=== PATIENT | male | born 1955 | race Caucasian/White ===

== ENCOUNTER 2023-10-13 10:50 | Outpatient (OUT) | payer MEDICARE, MEDICAID, SELFPAY ==
--- NOTE | 2023-10-13 | CONS_ITS ---
CONSULTATION DATE: 10/13/2023 TO: BROOK Dalton CHIEF COMPLAINT: Includes right shoulder pain as well as neck pain. HISTORY OF PRESENT ILLNESS: Review of systems, past medical/surgical history were obtained and documented on the health questionnaire and is available upon request. He is a 68-year-old male. He reports having pain in the above mentioned areas for at least the last six months. Over the last three months, he reports increasing the increase in pain has altered his quality of life, level of functioning and sleep pattern. He rates the pain overall as being 6-7/10 in severity and sometimes it does get to 10/10. He describes it as a sharp, aching pain, increased with activities such as standing, walking and performing transitioning maneuvers. He reports lifting maneuvers, pushing/pulling maneuvers are also quite painful. He has been using ibuprofen 800 mg three times a day for at least the last three months, which was only marginally helpful. He has been also using Tylenol almost around the clock as well, over the last 1-2 months. He has been trialed with oral steroid therapy, which offered him moderate reduction in pain as well. Despite this, as well as his activity modification, he reports his pain is altering his quality of life, level of functioning and sleep pattern. His MILI on today?s visit was 42. EXAMINATION: Notable for patient having hypoesthesia along the left C6 dermatome, 3/5 strength of the left biceps, depressed left biceps reflex, no appreciable Spurling?s sign, no appreciable transverse myelopathy noted. He also had severe pain with right shoulder extension, internal rotation, abduction. He has an equivocally positive right sided empty can sign and quite severe pain with right shoulder abduction. IMPRESSION: Our impression is patient with pain secondary to multiple etiology: Left C6 radiculopathy, but at this time I do not believe his left C6 radiculopathy is consistent with what is causing the majority of his pain, which is on the right side. I believe most of his pain on the right side is related to rotator cuff disorder with impingement type syndrome, as he has reduced range of motion with right shoulder extension, abduction as well as flexion, and patient had pain with empty can sign, as well as right shoulder abduction at approximately 45 degrees. Our impression is patient does have pain secondary to: 1. Right rotator cuff strain/impingement syndrome. 2. Left C6 radiculopathy with myofascial dysfunction of the cervical paravertebral muscles. RECOMMENDATIONS: I have recommended he consider adding physical therapy to his current routine, progressive right shoulder issues. We will proceed with a pending x-ray and MRI of the right shoulder, and proceed with a right shoulder injection under fluoroscopic guidance. In the meantime, I have asked him to maintain his current dose of Zanaflex 4 mg at h.s. As part of providing excellent, safe, comprehensive care, the following was completed at our patient's visit: 1. A medication reconciliation and review to ensure accurate knowledge of current/active medications, including asking our patients to inform us about any [id number] medications or herbal remedies/nutritional supplements/alternative remedies. 2. A review to specifically ensure our patients have had annual screening for: elevated body mass index (BMI, see intake chart for exact total), tobacco use, screening for depression, and screening for unhealthy alcohol use. When screening is concerning, patients are provided with education and the specific recommendation to discuss the concerning health issue and treatment options with their primary care provider. AVANI
== END 2023-10-13 10:51 | disposition home or self-care (01) ==
PROVIDERS: Visit Provider Anesthesiology
DX: M25.511 Pain in right shoulder (principal); M54.2 Cervicalgia; M75.101 Unspecified rotator cuff tear or rupture of right shoulder, not specified as traumatic; M54.12 Radiculopathy, cervical region
CPT/HCPCS: G0463

== ENCOUNTER 2023-10-21 09:26 | Outpatient (OUT) | payer MEDICARE, MEDICAID, SELFPAY ==
--- NOTE | 2023-10-21 09:30 | MR_ITS ---
[address] [address] Patient Name: NORMAN VILLAR MRN: [id number] date: 1955 Sex: M Assigned Patient Location: MRI Current Patient Location: MRI Accession/Order Number: [id number] Exam Date: 10/21/2023 09:45 Report Date: 10/21/2023 17:07 At the request of: ANTONIO RICHARDS Procedure: MR shoulder RT wo con EXAM: MR shoulder RT wo con HISTORY: Right Shoulder Rotator Cuff Tear, Right Shoulder Pain COMPARISON: 10/21/2023 radiograph TECHNIQUE: MRI images obtained with multiple sequences. MRI of the right shoulder without contrast. Sequences obtained by standard department protocol. FINDINGS: Moderate degeneration at the acromioclavicular joint. Subacromial subdeltoid bursal fluid, consistent with bursitis. High-grade partial-thickness tearing of the distal supraspinatus/infraspinatus tendon. The tear measures approximately 1.9 cm in width. Posterior infraspinatus fibers are intact. Subscapularis tendon is intact. Teres minor is intact. Mild atrophy of the muscle bulk of the rotator cuff. No acute fractures. No full-thickness chondral loss at the glenohumeral joint. No labral detachment. Biceps tendon is intact and within the intertubercular groove. No right axillary adenopathy. MR/MR shoulder RT wo con IMPRESSION: 1. High-grade partial-thickness tearing of the distal supraspinatus/infraspinatus tendon. The tear measuring approximately 1.9 cm in width. 2. Subacromial subdeltoid bursal fluid, consistent with bursitis. 3. Biceps tendon is intact and within the intertubercular groove. 4. No acute fractures. Electronically authenticated by: ARRON SANTOS Date: 10/21/2023 17:07
--- NOTE | 2023-10-21 09:31 | XR_ITS ---
[address] [address] Patient Name: NORMAN VILLAR MRN: [id number] date: 1955 Sex: M Assigned Patient Location: MRI Current Patient Location: MRI Accession/Order Number: [id number] Exam Date: 10/21/2023 09:40 Report Date: 10/21/2023 10:57 At the request of: ANTONIO RICHARDS Procedure: XR shoulder RT min 2V PROCEDURE: XR shoulder RT min 2V HISTORY: Right Shoulder Rotator Cuff Tear, Right Shoulder Pain ; chronic right shoulder pain COMPARISON: None. FINDINGS: BONES:Narrowing of the acromioclavicular joint and small undersurface osteophyte. Unremarkable glenohumeral joint. SOFT TISSUES:No visible soft tissue swelling. EFFUSION:None visible. OTHER: Negative. XR/XR shoulder RT min 2V IMPRESSION: 1. Mild degenerative changes of acromioclavicular joint which may predispose to rotator cuff injury. 2. No acute bone abnormality. Electronically authenticated by: JOSE RAMON BURT Date: 10/21/2023 10:57
--- OUTSIDE RECORDS SUMMARY | 2023-10-21 09:47 | XMS_ITS | CCD ---
Author Organization [facility] Care Team Providers Care Kalsominer Name Role Phone REYNOSOHEATH Attending Unavailable MARIAELENA, PHILLIP F Referring Unavailable MARIAELENA, PHILLIP F Primary Care Unavailable Jackie Pimentel MD Unavailable [phone] Jackie Pimentel MD Primary Care Provider SWETHA HANSEN Attending Unavailable MARIAELENA, PHILLIP F Referring Unavailable MARIAELENA, PHILLIP F Primary Care Unavailable SWETHA HANSEN Referring Unavailable MARIAELENA, PHILLIP F Primary Care Unavailable MARIAELENA, PHILLIP F Referring Unavailable MARIAELENA, PHILLIP F Primary Care Unavailable MARIAELENA, PHILLIP F Referring Unavailable MARIAELENA, PHILLIP F Primary Care Unavailable AARTI AGUIRRE Referring Unavailable MARIAELENA, PHILLIP F Primary Care Unavailable MARIAELENA, PHILLIP F Referring Unavailable MARIAELENA, PHILLIP F Primary Care Unavailable IRMA ELENA Attending Unavailable IRMA ELENA Referring Unavailable MARIAELENA, PHILLIP F Primary Care Unavailable ISELA JACOBS Attending Unavailab SKINNY Martin Attending Unavailable JACOBSISELA SAAVEDRA Referring Unavailab le JACOBS, ISELA Wolfe Attending Unavailab le JACOBS, ISELA Wolfe Attending Unavailab le JACOBS, ISELA Wolfe Referring Unavailab le JACOBS, ISELA Wolfe Referring Unavailab le JACOBSISELA Attending Unavailab IRMA Munson Attending Unavailable SKINNY PABLO Attending Unavailable IRMA ELENA Attending Unavailable IRMA ELENA Referring Unavailable ALEX MALCOLM Attending Unavailable IRMA ELENA Referring Unavailable RIVKA LORA Attending Unavailable IRMA ELENA Referring Unavailable RIVKA LORA Attending Unavailable IRMA ELENA Referring Unavailable DELVIN GREEN Attending Unavailable IRMA ELENA Referring Unavailable IRMA ELNEA Attending Unavailable DELVIN GREEN Attending Unavailable IRMA ELENA Referring Unavailable ALEX MALCOLM Attending Unavailable IRMA ELENA Referring Unavailable ALEX MALCOLM Attending Unavailable IRMA ELENA Referring Unavailable IRMA ELENA Referring Unavailable RIVKA LORA Attending Unavailable ALEX MALCOLM Attending Unavailable IRMA WATSON Referring Unavailable ISELA JACOBS Attending Unavailab SKINNY Martin Attending Unavailable ISELA JACOBS Attending Unavail jessica Allergies Allergy Classification Reported Allergen(s) Allergy Type Date of Onset Reaction(s) Facility (5 sources) Allopurinol; Translations: [ALLOPURINOL] Drug Allergy 10-12-2019 [facility] Medications Current Medications Medication Drug Class(es) Dates Sig (Normalized) Sig (Original) 8 hr acetaminophen 650 mg extended release oral tablet (2 sources) take 1 tablet by mouth every eight hours as needed acetaminophen (Tylenol 8 Hour) 650 MG ER tablet Take 650 mg by mouth every 8 (eight) hours if needed. 0 Active ACIDOPHILUS LACTOBACILLUS PO (2 sources) ACIDOPHILUS LACTOBACILLUS PO Take by mouth 0 Active albuterol 0.83 mg/ml inhalation solution (2 sources) beta2-Adrenergic Agonist take 2.5 mg by inhalation every six hours as needed albuterol (2.5 MG/3ML) 0.083% nebulizer solution Inhale 2.5 mg every 6 (six) hours if needed. 0 Active amLODIPine 10 mg oral tablet (2 sources) Dihydropyridine Calcium Channel Angelica Start: 11-17-2022 take 1 tablet by mouth in the morning amLODIPine (Norvasc) 10 MG tablet Indications: Benign essential HTN (CMS/HCC) TAKE 1 TABLET BY MOUTH IN THE MORNING 90 tablet 1 11/17/2022 Active atorvastatin 20 mg oral tablet (3 sources) HMG-CoA Reductase Inhibitor Start: 04-08-2023 take 0.5 tablet by mouth once daily atorvastatin (Lipitor) 20 MG tablet Indications: Type 2 diabetes mellitus without complication, without long-term current use of insulin (CMS/HCC) Take 1/2 (one-half) tablet by mouth once daily 45 tablet 0 04/08/2023 Active Start: 01-13-2023 End: 04-08-2023 take 0.5 tablet by mouth once daily atorvastatin (Lipitor) 20 MG tablet Indications: Type 2 diabetes mellitus without complication, without long-term current use of insulin (CMS/HCC) Take 1/2 (one-half) tablet by mouth once daily 45 tablet 0 01/13/2023 04/08/2023 Discontinued bicalutamide 50 mg oral tablet (2 sources) Androgen Receptor Inhibitor Start: 09-11-2022 take 1 tablet by mouth once daily bicalutamide (Casodex) 50 MG chemo tablet Take 50 mg by mouth Daily. 0 09/11/2022 Active colchicine 0.6 mg oral tablet (2 sources) colchicine 0.6 M G tablet Take by mouth 2 (two) times a day. As needed for gout 0 Active empagliflozin 25 mg oral tablet (3 sources) Sodium-Glucose Cotransporter 2 Inhibitor Start: 04-08-2023 take 1 tablet by mouth in the morning Jardiance 25 MG Indications: Type 2 diabetes mellitus without complication, without long-term current use of insulin (CMS/HCC) TAKE 1 TABLET BY MOUTH IN THE MORNING 90 tablet 0 04/08/2023 Active Start: 04-08-2023 take 1 tablet by nigel th in the morning Jardiance 25 MG Indications: Type 2 diabetes mellitus without complication, without long-term current use of insulin (CMS/HCC) TAKE 1 TABLET BY MOUTH IN THE MORNING 90 tablet 0 04/08/2023 Active Start: 10-22-2022 End: 04-08-2023 take 1 tablet by mouth in the morning Jardiance 25 MG Indications: Type 2 diabetes mellitus without complication, without long-term current use of insulin (CMS/HCC) TAKE 1 TABLET BY MOUTH IN THE MORNING 90 tablet 1 10/22/2022 04/08/2023 Discontinued ergocalciferol 1.25 mg oral capsule (2 sources) Provitamin D2 Compound Start: 03-09-2023 ergocalciferol (Vitamin D2) 1.25 MG (62769 UT) capsule Indications: Primary osteoarthritis, unspecified site Take 1 capsule (1.25 mg) by mouth every 7 (seven) days 12 capsule 0 03/09/2023 Active febuxostat 40 mg oral tablet (2 sources) Xanthine Oxidase Inhibitor Start: 11-24-2022 End: 05-23-2023 take 1 tablet by mouth in the morning febuxostat (Uloric) 40 MG tablet Indications: Chronic gout of multiple sites, unspecified cause Take 1 tablet (40 mg) by mouth in the morning. 90 tablet 1 11/24/2022 05/23/2023 Active 60 actuat fluticasone propionate 0.1 mg/actuat / salmeterol 0.05 mg/actuat dry powder inhaler (2 sources) Corticosteroid, beta2-Adrenergic Agonist Start: 02-21-2023 take 1 puff(s) by inhalation in the morning Fluticasone-Salmete rol 100-50 MCG/ACT aerosol powder Indications: Chronic obstructive pulmonary disease, unspecified COPD type (CMS/HCC) Inhale 1 puff in the morning and 1 puff before bedtime. 1 each 3 02/21/2023 Active glipiZIDE er 5 mg 24 hr extended release oral tablet (2 sources) Sulfonylurea Start: 12-31-2022 End: 06-29-2023 take 1 tablet by mouth every twenty-four hours in the morning glipiZIDE XL (Glucotrol XL) 5 MG 24 hr tablet Indications: Type 2 diabetes mellitus without complication, without long-term current use of insulin (CMS/HCC) Take 1 tablet (5 mg) by mouth in the morning. Take with food.. 90 tablet 1 12/31/2022 06/29/2023 Active lisinopril 20 mg oral tablet (3 sources) Angiotensin Converting Enzyme Inhibitor Start: 04-08-2023 take 1 tablet by mouth once daily lisinopril 20 MG tablet Indications: Primary hypertension (CMS/HCC) Take 1 tablet by mouth once daily 90 tablet 0 04/08/2023 Active Start: 01-13-2023 End: 04-08-2023 take 1 tablet by mouth once daily lisinopril 20 MG tablet Indications: Primary hypertension (CMS/HCC) Take 1 tablet by mouth once daily 90 tablet 0 01/13/2023 04/08/2023 Discontinued metFORMIN hydrochloride 500 mg oral tablet (3 sources) Biguanide Start: 04-08-2023 take 2 tablets by mouth twice daily metFORMIN (Glucophage) 500 MG tablet Indications: Type 2 diabetes mellitus without complication, without long-term current use of insulin (CMS/HCC) Take 2 tablets by mouth twice daily 360 tablet 0 04/08/2023 Active Start: 01-13-2023 End: 04-08-2023 take 2 tablets by mouth twice daily metFORMIN (Glucophage) 500 MG tablet Indications: Type 2 diabetes mellitus without complication, without long-term current use of insulin (CMS/HCC) Take 2 tablets by mouth twice daily 360 tablet 0 01/13/2023 04/08/2023 Discontinued naproxen 250 mg oral tablet (2 sources) Nonsteroidal Anti-inflammatory Drug take 1 tablet by mouth in the morning naproxen (Naprosyn) 250 MG tablet Take 250 mg by mouth in the morning and 250 mg in the evening. Take with meals. 0 Active Respiratory Therapy Supplies (CareTouch CPAP & BIPAP Hose) misc (2 sources) Start: 02-25-19 22 Respiratory Therapy Supplies (CareTouch CPAP & BIPAP Hose) misc 1 wear nightly for 365 days 0 02/25/2021 Active SITagliptin 100 mg oral tablet (2 sources) Dipeptidyl Peptidase 4 Inhibitor Start: 02-26-19 24 End: 08-25-19 24 take 1 tablet by mouth in the morning SITagliptin (Januvia) 100 MG tablet Indications: Type 2 diabetes mellitus without complication, without long-term current use of insulin (CMS/HCC) Take 1 tablet (100 mg) by mouth in the morning. 90 tablet 1 02/26/2023 08/25/2023 Active Problems Active Problems Problem Classification Problem Date Documented Da te Episodic/Chronic Cancer of prostate (6 sources) Malignant neoplasm of prostate; Translations: [Adenocarcinoma of prostate] Onset: 10-12-2019 10-23-2022 Chronic Chronic obstructive pulmonary disease and bronchiectasis (2 sources) Chronic obstructive lung disease; Translations: [Chronic obstructive pulmonary disease, unspecified] Onset: 06-17-2018 07-28-2022 Chronic Diabetes mellitus without complication (4 sources) Type 2 diabetes mellitus without complication; Translations: [Type 2 diabetes mellitus without complications] Onset: 07-07-2022 04-08-2023 Chronic Disorders of lipid metabolism (2 sources) Hyperlipidemia; Translations: [Hyperlipidemia, unspecified] Onset: 03-02-2015 07-28-2022 Chronic Essential hypertension (3 sources) Essential hypertension; Translations: [Essential (primary) hypertension] Onset: 07-28-2022 04-08-2023 Chronic Gout and other crystal arthropathies (7 sources) 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; Translations: [Chronic gout due to renal impairment, right ankle and foot, without tophus (tophi)] Onset: 12-22-2018 07-28-2022 Chronic Malaise and fatigue (2 sources) Fatigue; Translations: [Chronic fatigue, unspecified] Onset: 09-19-2019 10-23-2022 Chronic Osteoarthritis (8 sources) Arthritis; Translations: [Unspecified osteoarthritis, unspecified site] Onset: 12-21-2017 07-28-2022 Chronic Other and unspecified benign neoplasm (2 sources) Benign neoplasm of cerebral meninges; Translations: [Benign neoplasm of cerebral meninges] Onset: 07-20-2020 10-23-2022 Chronic Other and unspecified benign neoplasm (2 sources) Neoplasm of meninges; Translations: [Benign neoplasm of meninges, unspecified] Onset: 10-23-2022 10-23-2022 Chronic Other nervous system disorders (2 sources) Difficulty walking; Translations: [Difficulty in walking, not elsewhere classified] Onset: 07-07-2022 07-07-2022 Chronic Other nervous system disorders (2 sources) Arachnoid cyst; Translations: [Cerebral cysts] Onset: 07-20-2020 10-23-2022 Chronic Other nutritional; endocrine; and metabolic disorders (2 sources) Hypercalcemia; Translations: [Hypercalcemia] Onset: 10-23-2022 10-23-2022 Chronic Other nutritional; endocrine; and metabolic disorders (2 sources) Morbid obesity; Translations: [Morbid (severe) obesity due to excess calories] Onset: 03-25-2017 10-23-2022 Chronic Other nutritional; endocrine; and metabolic disorders (2 sources) Body mass index 40+ - severely obese; Translations: [Morbid (severe) obesity due to excess calories] Onset: 02-23-2020 11-10-2022 Chronic Other screening for suspected conditions (not mental disorders or infectious disease) (2 sources) MRI scan abnormal; Translations: [Abnormal findings on diagnostic imaging of other specified body structures] Onset: 06-10-2022 10-23-2022 Chronic Other upper respiratory disease (2 sources) Chronic rhinitis; Translations: [Chronic rhinitis] Onset: 04-28-2018 10-23-2022 Chronic Residual codes; unclassified (2 sources) Obstructive sleep apnea syndrome; Translations: [Obstructive sleep apnea (adult) (pediatric)] Onset: 03-25-2016 10-23-2022 Chronic Residual codes; unclassified (1 source) Personal history of irradiation; Translations: [Personal history of irradiation] Onset: 06-03-2023 Episodic Spondylosis; intervertebral disc disorders; other back problems (1 source) Radiculopathy, cervical region; Translations: [Radiculopathy, cervical region] Onset: 09-28-2023 Episodic Past or Other Problems Problem Classification Problem Date Documented Date Episodic/Chronic Mycoses (2 sources) Onychomycosis due to dermatophyte ; Translations: [Tinea unguium] Onset: 07-07-2022 07-07-2022 Episodic Other connective tissue disease (2 sources) Bursitis of left foot; Translations: [Other enthesopathy of left foot and ankle] Onset: 07-07-2022 07-07-2022 Episodic Other connective tissue disease (2 sources) Bursitis of right foot; Translations: [Other enthesopathy of right foot and ankle] Onset: 07-07-2022 07-07-2022 Episodic Other connective tissue disease (2 sources) Pain in toe; Translations: [Pain in unspecified toe(s)] Onset: 07-07-2022 07-07-2022 Episodic Other skin disorders (2 sources) Acquired keratoderma; 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 FINDINGS: Vertebral body heights and alignment are maintained. Minimal degenerative changes for age. There is intradiscal edema at C3-C4 without subjacent cortical erosion. No suspicious marrow signal changes. Visualized posterior fossa and cervical cord signal are broadly unremarkable. C2-C3: Mild left neuroforaminal narrowing. No significant spinal canal narrowing. C3-C4: Small central disc osteophyte complex, bilateral facet and uncovertebral arthropathy results in mild right and moderate left neuroforaminal narrowing. Mild spinal canal narrowing. C4-C5: Mild broad-based disc osteophyte complex and facet and uncovertebral arthropathy results in moderate to severe left and moderate right neuroforaminal narrowing. Mild spinal canal narrowing. C5-C6: Mild broad-based disc osteophyte complex, facet arthropathy results in [id number] right and moderate left neuroforaminal narrowing. No significant spinal canal narrowing. C6-C7: Mild broad-based disc osteophyte complex with right foraminal disc component, facet and uncovertebral arthropathy results in at least moderate right and [id number] left neuroforaminal narrowing. No significant spinal canal narrowing. C7-T1: No significant spinal canal or neural foraminal narrowing. IMPRESSION: * Mild multilevel degenerative changes with scattered neuroforaminal narrowing as described. * Intradiscal edema at the C3-C4 disc space without additional inflammatory changes to suggest acute discitis osteomyelitis. Finalized by Kulwinder Chiang on 09/29/2023 12:05 PM Normal [facility] US LOWER EXTREMITY VENO US DUPLEX LEFTon 08-05-2023 [facility] US LOWER EXTREMITY VENOUS DUPLEX LEFT FINDINGS: The deep venous system of the left lower extremity exhibits full compressibility and normal flow augmentation. These specifically include the common femoral, superficial femoral, and popliteal veins. No evidence of deep venous thrombosis is present. No cystic or soft tissue mass in the popliteal fossa. IMPRESSION: Normal venous sonogram. No deep venous thrombosis. TRANSCRIBED BY: ELECTRONICALLY SIGNED BY: Jorge Mc MD Normal Not Available XR KNEE 4+ VIEWS LEFTon 07-24 XR KNEE 4+ VIEWS LEFT FINDINGS: Moderate to severe medial and patellofemoral joint space loss. Mild patellofemoral femoral osteophyte formation. Moderate to severe medial and patellofemoral osteoarthritis. IMPRESSION: Moderate medial and patellofemoral osteoarthritis. TRANSCRIBED BY: ELECTRONICALLY SIGNED BY: Jorge Mc MD Normal Not Available Prostate specific Ag [Mass/V ol]on 07-30-2023 PROSTATIC SPEC ANT <0.01 Normal 0.00-4.00 [facility] Comment on above: Result Comment: The method used for this test is Son[employer] DXI chemiluminescent immunoassay. Values obtained by different assay methods cannot be used interchangeably. Performed By: #### 2 986-8, 2857-1 #### [facility] ([id number]) [address], [address] [place] [address] TESTOSTERONEon 07-30-2023 Testosterone [Mass/Vol] ng/dL Low 1.68-7.46 [facility] Comment on above: Performed By: #### 2 986-8, 2857-1 #### [facility] ([id number]) [address], [address] [place] [address] CBC AND AUTO DIFFon 05-28-19 24 ABSOLUTE BASOPHIL 0.1 X10E9/L Normal 0.0-0.2 [facility] Comment on above: Performed By: #### Carmen BELL CMP, 1989-06 #### [facility] ([id number]) [address], [address] [place] [address] ABSOLUTE NEUTROPHIL 4.1 X10E9/L Normal 1.5-6.6 [facility] Comment on above: Performed By: #### Carmen BELL CMP, 1987-06 #### [facility] ([id number]) [address], [address] [place] [address] Basophils/100 WBC (Bld) 1.8 % Normal [facility] Comment on above: Performed By: #### Carmen BELL CMP, 1987-06 #### [facility] ([id number]) [address], [address] [place] [address] Eosinophils (Bld) [#/Vol] 0.4 10*3/uL Normal 0.0-0.4 [facility] Comment on above: Performed By: #### Carmen BELL CMP, 1987-06 #### [facility] ([id number]) [address], [address] [place] [address] Eosinophils/100 WBC (Bld) 6.5 % Normal [facility] Comment on above: Performed By: #### Carmen BELL CMP, 1987-06 #### [facility] ([id number]) [address], [address] [place] [address] Erythrocyte distribution width (RBC) [Ratio] 14.6 % Normal 11.5-15.0 [facility] Comment on above: Performed By: #### Carmen BELL CMP, 1987-06 #### [facility] ([id number]) [address] [facility] [address] [place] [address] Hematocrit (Bld) [Volume fraction] 34.1 % Low 39-49 [facility] Comment on above: Performed By: #### Carmen BELL CMP, 1987-06 #### [facility] ([id number]) [address], [facility] [address] [place] [address] Hemoglobin (Bld) [Mass/Vol] 11.5 g/dL Low 13.0-17.0 [facility] Comment on above: Performed By: #### Carmen BELL CMP, 1987-06 #### [facility] ([id number]) [address] [address] [place] [address] Lymphocytes (Bld) [#/Vol] 1.2 10*3/uL Normal 1.0-3.5 [facility] Comment on above: Performed By: #### Carmen BELL CMP, 1987-06 #### [facility] ([id number]) [address] [address] [place] [address] Lymphocytes/100 WBC (Bld) 18.7 % Normal [facility] Comment on above: Performed By: #### Carmen BELL CMP, 1987-06 #### [facility] ([id number]) [address], [address] [place] [address] MCH (RBC) [Entitic mass] 29.2 pg Normal 27-34 [facility] Comment on above: Performed By: #### Carmen BELL CMP, 1987-06 #### [facility] ([id number]) [address], [address] [place] [address] MCHC (RBC) [Mass/Vol] 33.7 g/dL Normal 32-36 [facility] Comment on above: Performed By: #### Carmen BELL CMP, 1987-06 #### [facility] ([id number]) [address], [address] [place] [address] MCV (RBC) [Entitic vol] 87 fL Normal 80-100 [facility] Comment on above: Performed By: #### Carmen BELL CMP, 1987-06 #### [facility] ([id number]) [address], [facility] [address] [place] [address] Monocytes (Bld) [#/Vol] 0.6 10*3/uL Normal 0-0.9 [facility] Comment on above: Performed By: #### Carmen BELL CMP, 1987-06 #### [facility] ([id number]) [address], [address] [place] [address] Monocytes/100 WBC (Bld) 9.1 % Normal [facility] Comment on above: Performed By: #### Carmen BELL CMP, 1987-06 #### [facility] ([id number]) [address], [address] [place] [address] Neutrophils/100 WBC (Bld) 63.9 % Normal [facility] Comment on above: Performed By: #### Carmen BELL CMP, 1987-06 #### [facility] ([id number]) [address], [address] [place] [address] Platelet mean volume (Bld) [Entitic vol] 8.5 fL Normal 7-12 [facility] Comment on above: Performed By: #### Carmen BELL CMP, 1987-06 #### [facility] ([id number]) [address], [address] [place] [address] Platelets (Bld) [#/Vol] 137 10*3/uL Low 150-450 [facility] Comment on above: Performed By: #### Carmen BELL CMP, 1987-06 #### [facility] ([id number]) [address] [place] [address] RBC COUNT 3.94 X10E12/L Low 4.10-5.70 [facility] Comment on above: Performed By: #### C LAURA BELL, 1989-06 #### [facility] ([id number]) [address], [address] [place] [address] WBC (Bld) [#/Vol] 6.5 10*3/uL Normal 4.0-11.0 [facility] Comment on above: Performed By: #### Carmen BELL CMP, 1987-06 #### [facility] ([id number]) [address], [address] [place] [address] COMPREHENSIVE METABOLIC PANE Alvin 05-28-2023 Albumin [Mass/Vol] 3.9 g/dL Normal 3.2-5.3 [facility] Comment on above: Performed By: #### C LAURA BELL, 1989-06 #### [facility] ([id number]) [address], [address] [place] [address] ALP [Catalytic activity/Vol] 83 U/L Normal 39-130 [facility] Comment on above: Performed By: #### Carmen BELL CMP, 1987-06 #### [facility] ([id number]) [address], [address] [place] [address] ALT [Catalytic activity/Vol] 29 U/L Normal 0-40 [facility] Comment on above: Performed By: #### Carmen BELL CMP, 1987-06 #### [facility] ([id number]) [address], [address] [place] [address] Anion gap [Moles/Vol] 9 mmol/L Normal 5-15 [facility] Comment on above: Performed By: #### Carmen BELL CMP, 1987-06 #### [facility] ([id number]) [address] [place] [address] AST [Catalytic activity/Vol] 31 U/L Normal 0-41 [facility] Comment on above: Performed By: #### Carmen BELL CMP, 1987-06 #### [facility] ([id number]) [address], [address] [place] [address] Bilirubin [Mass/Vol] 0.3 mg/dL Normal 0.3-1.2 [facility] Comment on above: Performed By: #### Carmen BELL CMP, 1987-06 #### [facility] ([id number]) [address], [address] [place] [address] Calcium [Mass/Vol] 9.3 mg/dL Normal 8.5-10.5 [facility] Comment on above: Performed By: #### Carmen BELL CMP, 1987-06 #### [facility] ([id number]) [address], [address] [place] [address] Chloride [Moles/Vol] 107 mmol/L Normal 98-109 [facility] Comment on above: Performed By: #### Carmen BELL CMP, 1987-06 #### [facility] ([id number]) [address], [address] [place] [address] CO2 [Moles/Vol] 25 mmol/L Normal 22-32 [facility] Comment on above: Performed By: #### Carmen BELL CMP, 1987-06 #### [facility] ([id number]) [address], [address] [place] [address] Creatinine [Mass/Vol] 0.98 mg/dL Normal 0.60-1.30 [facility] Comment on above: Result Comment: METH OD TRACEABLE TO IDMS STANDARD Performed By: #### Carmen BELL CMP, 1987-06 #### [facility] ([id number]) [address] [place] [address] GFR/1.73 sq M.predicted among non-blacks MDRD (S/P/Bld) [Vol rate/Area] 83 mL/min/{1.73_m2} Normal >59 [facility] Comment on above: Result Comment: Reported eGFR is based on the CKD-EPI 2020 equation that does not use a race coefficient. Performed By: #### Carmen BELL CMP, 1989-06 #### [facility] ([id number]) [address] [place] [address] Glucose [Mass/Vol] 83 mg/dL Normal 65-99 [facility] Comment on above: Performed By: #### Carmen BELL CMP, 1989-06 #### [facility] ([id number]) [address] [address] [place] [address] Potassium [Moles/Vol] 3.9 mmol/L Normal 3.5-5.0 [facility] Comment on above: Performed By: #### Carmen BELL CMP, 1989-06 #### [facility] ([id number]) [address] [address] [place] [address] Protein [Mass/Vol] 7.3 g/dL Normal 6.0-8.0 [facility] Comment on above: Performed By: #### Carmen BELL CMP, 1989-06 #### [facility] ([id number]) [address] [address] [place] [address] Sodium [Moles/Vol] 141 mmol/L Normal 134-146 [facility] Comment on above: Performed By: #### Carmen BELL CMP, 1989-06 #### [facility] ([id number]) [address] [address] Urea nitrogen [Mass/Vol] 12 mg/dL Normal 5-27 [facility] Comment on above: Performed By: #### Carmen BELL CMP, 1989-06 #### [facility] ([id number]) [address] [place] [address] CRP [Mass/Vol]on 05-28-2023 C REACTIVE PROTEIN 1.0 mg/dL High 0.000-0.744 [facility] Comment on above: Performed By: #### [facility], 1989-06 #### [facility] ([id number]) [address] [address] ESR Photometric method (Bld) [Velocity]on 05-28-2023 ESR, ERYTHROCYTE SEDIMENTATION RATE 35 mm/h High 0-20 [facility] Comment on above: Performed By: #### [facility], 1989-06 #### [facility] ([id number]) [address] [address] Prostate specific Ag [Mass/V ol]on 05-25-2023 PROSTATIC SPEC ANT <0.01 Normal 0.00-4.00 [facility] Comment on above: Result Comment: The method used for this test is Sonja [place] DXI chemiluminescent immunoassay. Values obtained by different assay methods cannot be used interchangeably. Performed By: #### 2 857-1 #### [facility] ([id number]) [address] [address] #### TEFTMA #### [facility] ([id number]) [address] [place] [address], [place] [address] TESTOSTERONE,F AND Ton 05-24 TESTOSTERONE,F,AD,ML <5.0 Low 47.0-244.0 [facility] Comment on above: Result Comment: NOTE INTERPRETIVE INFORMATION: Testosterone, Free by Dialysis This laboratory reference method for the direct measurement of free testosterone is not recommended when low testosterone concentrations, such as those found in children and cisgender females, are expected. For these individuals, the preferred test is Testosterone, Free (Adult Females, Children, or Individuals on Testosterone-Suppressing Hormone Therapy) ([facility] test code [id number]). For individuals on testosterone hormone therapy, refer to cisgender male reference intervals. No reference intervals have been established for males younger than 18 years or for cisgender females. For a complete set of all established reference intervals, refer to [employer]/Tests/Pub/[id number]. This test was developed and its performance characteristics determined by [facility]. It has not been cleared or approved by the US Food and Drug Administration. This test was performed in a CLIA certified laboratory and is intended for clinical purposes. Performed By: [facility] [address] [place] [address] [employer]: Frank Chatterjee MD, PhD [place] Number: [id number] Performed By: #### 2 857-1 #### [facility] ([id number]) [address] [facility], [address] [place] [address] #### TEFTMA #### [facility] ([id number]) [address] [place] [address] TESTOSTERONE,TOT 8.0 ng/dL Low 300.0-720.0 [facility] Comment on above: Result Comment: NOTE This test was developed and its performance characteristics determined by [employer]. It has not been cleared or approved by the US Food and Drug Administration. This test was performed in a CLIA certified laboratory and is intended for clinical purposes. Performed By: #### 2 857-1 #### [facility] ([id number]) [address] [facility] [place] [address] #### TEFTMA #### [facility] ([id number]) [address] [place] [address] XR CHEST 2 VIEWSon 4 XR CHEST 2 VIEWS EXAMINATION: XR CHES T 2 VIEWS HISTORY: cough TECHNIQUE: Frontal and lateral views of the chest. COMPARISON: None chest radiograph April 28, 2018 FINDINGS: Cardiomediastinal silhouette is within normal limits. No pneumothorax, pleural effusion, or consolidation. Hyperinflation of the lungs and increased bronchovascular marking suggesting COPD. Degenerative changes of the spine. No acute osseous abnormality. IMPRESSION: No radiographic evidence of acute intrathoracic process. ELECTRONICALLY SIGNED BY: Gilson Rainey, DO Normal Not Available XR Shoulder Complete Left*on 07-04-2022 XR Shoulder Complete Left* COMPARISON: NONE. FINDINGS: There are no lytic or sclerotic lesions. There is no acute fracture or subluxation. The humeral head is located. The AC joint and the clavicle are unremarkable. The visualized portions of the lung, ribs, and chest wall soft tissues are unremarkable. IMPRESSION: There are no acute changes. Report reported and signed by RONAL SIMMONS on 07/04/2022 1012 Normal [facility] Abstract Writer XR Shoulder Complete Right*o n 07-04-2022 XR Shoulder Complete Right* COMPARISON: NONE. FINDINGS: There are no lytic or sclerotic lesions. There is no acute fracture or subluxation. The humeral head is located. The AC joint and the clavicle are unremarkable. The visualized portions of the lung, ribs, and chest wall soft tissues are unremarkable. IMPRESSION: There are no acute osseous changes. Report reported and signed by RONAL SIMMONS on 07/04/2022 1021 Normal [facility] Abstract Writer Encounters Encounter Date Encounter Type Care Provider Facility Start: 10-19-2023 End: 10-19-2023 ambulatory ALEX MALCOLM Not Available Start: 10-14-2023 End: 10-14-2023 ambulatory IRMA ELENA Not Available Start: 10-12-2023 End: 10-12-2023 ambulatory ALEX MALCOLM Not Available Start: 10-07-2023 End: 10-07-2023 ambulatory ALEX MALCOLM Not Available Start: 09-30-2023 End: 09-30-2023 ambulatory DELVIN GREEN Not Available Start: 09-29-2023 End: 09-29-2023 ambulatory IRMA ELENA Not Available Start: 09-28-2023 End: 09-28-2023 ambulatory IRMA ELENA [facility] Start: 09-23-2023 End: 09-23-2023 ambulatory DELVIN GREEN Not Available Start: 09-16-2023 End: 09-16-2023 ambulatory RIVKA LORA Not Available Start: 09-14-2023 End: 09-14-2023 ambulatory RIVKA LORA Not Available Start: 09-08-2023 End: 09-08-2023 ambulatory ALEX MALCOLM Not Available Start: 09-01-2023 End: 09-01-2023 ambulatory IRMA ELENA Not Available Start: 09-01-2023 End: 09-01-2023 ambulatory IRMA ELENA Not Available Start: 08-18-2023 End: 08-18-2023 ambulatory SKINNY PABLO Not Available Start: 08-14-2023 End: 08-14-2023 ambulatory IRMA ELENA Not Available Start: 08-12-2023 End: 08-12-2023 ambulatory ISELA JACOBS Not Available Start: 08-05-2023 End: 08-05-2023 ambulatory ISELA A JACOBS Not Available Start: 08-05-2023 End: 08-05-2023 ambulatory ISELA A JACOBS Not Available Start: 07-30-2023 End: 07-30-2023 ambulatory [facility] Start: 07-22-2023 End: 07-22-2023 ambulatory ISELA JACOBS Not Available Start: 07-15-2023 End: 07-16-2023 ambulatory [facility] Start: 06-03-2023 End: 06-04-2023 ambulatory [facility] Start: 05-28-2023 End: 05-29-2023 ambulatory SWETHA N [facility] Start: 05-25-2023 End: 05-25-2023 [facility] Start: 05-22-2023 End: 05-22-2023 ambulatory ISELA JACOBS Not Available Start: 05-13-2023 End: 05-13-2023 ambulatory SKINNY PABLO Not Available Start: 05-13-2023 End: 05-13-2023 ambulatory ISELA JACOBS Not Available Start: 04-08-2023 Refjacquie saavedra NP Work Phone: [facility] Comment on above: Type 2 diabetes rosio itus without complication, without long- term current use of insulin (CMS/HCC); Primary hypertension (CMS/HCC) Type 2 diabetes rosio itus without complication, without long-term current use of insulin (CMS/HCC) Start: 03-02-2023 End: 03-02-2023 ambulatory [place] REYNOSO [facility] Start: 02-11-2023 End: 02-11-2023 ambulatory ISELA JACOBS Not Available Start: 02-11-2023 End: 02-11-2023 ambulatory SKINNY PABLO Not Available Start: 02-05-2023 End: 02-05-2023 ambulatory ISELA JACOBS Not Available Procedures Date Procedure Procedure Detail Performing Clinician Start: 03-02-2023 Follow-up visit Follow-up HEATH REYNOSO Plan of Treatment Date Care Activity Detail Author Start: 12-17-2024 Glaucoma screening Diabetes: R etinopathy Screening [facility] Start: 05-13-2023 End: 05-13-2023 Patient encounter procedure 05/13/2023 1:00 PM EDT Procedure Visit [facility] [address] [place] [id number] Skinny Pablo DPM [address] [place] [address] [facility] Start: 05-12-2023 End: 05-12-2023 Patient encounter procedure 05/12/2023 9:00 AM EDT [facility] [address] [place] [id number] Isela Jacobs NP [address] [place] [address] [facility] Start: 05-07-2023 Hemoglobin A1c measurement Diabetes: Hemoglobin A1C [facility] Start: 04-11-2023 Urine screening for protein Diabetes: Urine Protein Screening [facility] Start: 09-20-2021 Medicare Annual Well ness (AWV) Medicare Annual Wellness (AWV) [facility] Start: 1955 Screening for malign ant neoplasm of colon [facility] Immunizations Immunization Date Immunization Notes Care Provider Fa tashi 10-30-2022 Influenza, High-dose Seasonal, Quadrivalent, Preservative Free Teresa Kampfer [employer] Work Phone: [facility] 10-30-2022 Pneumococcal Conjuga te PCV 20 Teresa Bella [employer] Work Phone: [facility] 05-21-2022 SARS-COV-2 (COVID-19 ) vaccine, mRNA, spike protein, LNP, bivalent, PF Teresa Bella [employer] Work Phone: [facility] 11-28-2021 zoster vaccine recombinant Teresa Bella [employer] Work Phone: [facility] 08-10-2021 zoster vaccine recombinant Teresa Bella [employer] Work Phone: [facility] Payers Date Payer Category Payer Medicare [facility] MEDICARE ADVANTAGE [facility] MEDICARE ADVANTAGE [id number] 2022-Present [address] [place] [address] [id number] 2021 Medicaid MEDICAID [facility] [id number] 2021-Present [phone] [address] [place] [address] Medicaid [id number] 2021 Medicaid [id number] 2018 Medicare [id number] 1953 Unknown [id number] 2.16.840.1.253745.3.579.2.1286 1953 Unknown [id number] 2.16.840.1.256109.3.579.2.128 1953 Unknown [id number] 2.16.840.1.093920.3.579.2.1285 1953 Unknown [id number] 2.16.840.1.457690.3.579.2.1286 1953 Unknown [id number] 2.16.840.1.219488.3.579.2.1285 1953 Unknown [id number] 2.16.840.1.589272.3.579.2.128 1953 Unknown [id number] 2.16.840.1.798289.3.579.2.1285 1953 Unknown [id number] 2.16.840.1.941564.3.579.2.1285 1953 Unknown [id number] 2.16.840.1.763627.3.579.2.1258 1953 Unknown [id number] 2.16.840.1.299410.3.579.2.1258 1953 Unknown [id number] 2.16.840.1.760228.3.579.2.1258 1953 Unknown [id number] 2.16.840.1.134086.3.579.2.1258 1953 Unknown [id number] 2.16840.1.431631.3.579.2.1258 1953 Unknown [id number] 2.840.1.213136.3.579.2.1258 1953 Unknown [id number] 2.16840.1.760648.3.579.2.1258 1953 Unknown [id number] 2.16840.1.316379.3.579.2.1258 1953 Unknown [id number] 2.16840.1.464970.3.579.2.1258 1953 Unknown [id number] 2.16.840.1.757021.3.579.2.1258 1953 Unknown [id number] 2.16.840.1.063571.3.579.2.1258 1953 Unknown [id number] 2.16.840.1.124847.3.579.2.1258 1953 Unknown [id number] 2.16.840.1.311176.3.579.2.9 1953 Unknown [id number] 2.16.840.1.442686.3.579.2.1258 1953 Unknown [id number] 2.16.840.1.132126.3.579.2.9 1953 Unknown [id number] 2.16.840.1.625277.3.579.2.1258 1953 Unknown [id number] 2.16.840.1.931107.3.579.2.9 1953 Unknown [id number] 2.16.840.1.034694.3.579.2.1258 1953 Unknown [id number] 2.16.840.1.785366.3.579.2.1258 1953 Unknown [id number] 2.16.840.1.046791.3.579.2.1258 1953 Unknown [id number] 2.16.840.1.143923.3.579.2.1258 1953 Unknown [id number] 2.16.840.1.216616.3.579.2.1258 1953 Unknown [id number] 2.16.840.1.599497.3.579.2.9 1953 Unknown [id number] 2.16.840.1.612622.3.579.2.1258 1953 Unknown [id number] 2.16.840.1.035316.3.579.2.9 Social History Date Type Detail Facility Start: 08-04-2022 Tobacco smoking status MDIS Ex-smoke r [facility] Start: 02-23-1970 End: 02-24-1972 History of tobacco use Current smoker [facility] Start: 02-23-1970 End: 02-24-1972 History of tobacco use Cigarette Smoker [facility] Start: 08-04-2022 End: 02-05-2023 Cigarettes smoked current (pack per day) - Reported 1.5 [facility] Start: 08-04-2022 Tobacco use and exposure Smoke less tobacco non-user [facility] Start: 02-11-2023 Alcohol intake Ex-drinker (finding) [facility] Start: 11-04-2022 End: 02-05-2023 Alcohol Use Disorder Identification Test - Consumption [AUDIT-C] [facility] How often to you hav e a drink containing alcohol? Monthly or less [facility] How many standard dr inks containing alcohol do you have on a typical day? 1 or 2 [facility] How often do you hav e 6 or more drinks on 1 occasion? Never [facility] Start: 07-25-2022 Tobacco Comment >10 years sinc e last smoked [facility] Start: 01-02-2023 Alcohol Comment Caffeine intak e : 1-2 cups per day coffee [facility] Start: 1955 Sex Assigned At Not on file [facility] Medical Equipment Procedure Code Equipment Code Equipment Origin al Text Equipment Identifier Dates 1 each by Other route if needed. [id number] 1 (one) time eac h day at the same time. [id number] Start: 02-09-2019 Evaluation note Note Date & Type Note Facility Evaluation note Diagnosis Type 2 diabetes mellitus without complication, without long-term current use of insulin (CMS/HCC) Primary hypertension (CMS/HCC) Unspecified essential hypertension documented in this encounter [facility] Evaluation note Note Date & Type Note Facility Evaluation note Diagnosis Type 2 diabetes mellitus without complication, without long-term current use of insulin (CMS/HCC) documented in this encounter [facility] Summary Purpose Family History No Family History Records FoundNo Family History Records FoundNo Family History Records FoundNo Family History Records FoundNo Family History Records Found Advance Directives No Advanced Directives Records FoundNo Advanced Directives Records FoundNo Advanced Directives Records FoundNo Advanced Directives Records FoundNo Advanced Directives Records Found Additional Source Comments (unrecognized sect ion and content) No Status Records FoundNo Status Records FoundNo Status Records FoundNo Status Records FoundNo Status Records Found INFORMATION SOURCE (unrecogn ized section and content) DATE CREATED AUTHOR 07/05/2022 [facility] dical Specialist DATE CREATED AUTHOR AUTHOR'S ORGANIZ ATION 03/07[facility]2023 [facility] DATE CREATED AUTHOR AUTHOR'S ORGANIZ ATION 07/17/2023 [facility] DATE CREATED AUTHOR AUTHOR'S ORGANIZ ATION 09/29/2023 [facility] DATE CREATED AUTHOR AUTHOR'S ORGANIZ ATION 10/21/2023 [facility] dical Specialists EPIC Reason for Visit (unrecogniz ed section and content) Reason Comments Med Refill Care Teams (unrecognized sec tion and content) [facility] Relationship Specialty Start Date End Date Jackie Pimentel MD [address] [place] [address] PCP - Leonel CALIX 02/23/22 Jackie Pimentel MD [address] [facility] [place] [address] PCP - General Family Medicine 07/22/22 Kals[facility] Relationship Specialty Start Date End Date Jackie Pimentel MD [address] [facility] [place] [address] PCP - Leonel CALIX 02/23/22 Jackie Pimentel MD [address] [facility] [place] [address] PCP - General Family Medicine 07/22/22 FOR RECORDS PERTAINING TO PATIENTS WHO ARE OR HAVE BEEN ENROLLED IN A CHEMICAL DEPENDENCY/SUBSTANCEABUSE PROGRAM, SOME INFORMATION MAY BE OMITTED. This clinical summary was aggregated from multiple sources. Caution should be exercised in using it in the provision of clinical care. This summary normalizes information from multiple sources, and as a consequence, information in this document may materially change the coding, format and clinical context of patient data. In addition, data may be omitted in some cases. CLINICAL DECISIONS SHOULD BE BASED ON THE PRIMARY CLINICAL RECORDS. [employer] provides no warranty or guarantee of the accuracy or completeness of information in this document.
== END 2023-10-21 09:27 | disposition home or self-care (01) ==
LOC: MRI 09:27
PROVIDERS: Visit Provider Anesthesiology Pain Medicine
DX: M25.511 Pain in right shoulder (principal); S46.811A Strain of other muscles, fascia and tendons at shoulder and upper arm level, right arm, initial encounter; M75.51 Bursitis of right shoulder
CPT/HCPCS: 73030; 73221

== ENCOUNTER 2023-11-10 09:51 | Day surgery (SDC) | payer MEDICARE, MEDICAID, SELFPAY ==
--- OUTSIDE RECORDS SUMMARY | 2023-11-10 10:13 | XMS_ITS | CCD ---
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 Name Role Phone REYNOSOHEATH Attending Unavailable MARIAELENA, PHILLIP F Referring Unavailable MARIAELENA, PHILLIP F Primary Care Unavailable Jackie Pimentel MD Unavailable Jackie Pimentel MD Primary Care Provider SWETHA HANSEN Attending Unavailable MARAIELENA, PHILLIP F Referring Unavailable MARIAELENA, PHILLIP F Primary Care Unavailable HANSENSWETHA RASHID Referring Unavailable MARIAELENA, PHILLIP F Primary Care Unavailable MARIAELENA, PHILLIP F Referring Unavailable MARIAELENA, PHILLIP F Primary Care Unavailable MARIAELENA, PHILLIP F Referring Unavailable MARIAELENA, PHILLIP F Primary Care Unavailable BROOKLYN AGUIRREA E Referring Unavailable MARIAELENA, PHILLIP F Primary Care Unavailable MARIAELENA, PHILLIP F Referring Unavailable MARIAELENA, PHILLIP F Primary Care Unavailable IRMA ELENA Attending Unavailable IRMA ELENA Referring Unavailable MARIAELENA, PHILLIP F Primary Care Unavailable HANSEN, SWETHA Referring Unavailable MARIAELENA, PHILLIP F Primary Care Unavailable ISELA JACOBS Attending Unavailab SKINNY Martin Attending Unavailable JACOBSISELA CERVANTES Referring Unavailab le JACOBSISELA Attending Unavailab le JACOBSISELA LI Attending Unavailab le ISELA JACOBS Referring Unavailab le JACOBSISELA SAAVEDRA Referring Unavailab le ISELA JACOBS Attending Unavailab IRMA Munson Attending Unavailable SKINNY PABLO Attending Unavailable IRMA ELENA Attending Unavailable IRMA ELNEA Referring Unavailable ALEX MALCOLM Attending Unavailable IRMA ELENA Referring Unavailable RIVKA LORA Attending Unavailable IRMA ELENA Referring Unavailable RIVKA LORA Attending Unavailable IRMA ELENA Referring Unavailable DELVIN GREEN Attending Unavailable IRMA ELENA Referring Unavailable KASSY, IRMA Diehl Attending Unavailable DELVIN GREEN Attending Unavailable KASSY, IRMA Diehl Referring Unavailable ALEX MALCOLM Attending Unavailable KASSY, IRMA Diehl Referring Unavailable ALEX MALCOLM Attending Unavailable ELENA, IRMA Diehl Referring Unavailable ELENA, IRMA Diehl Referring Unavailable BRINK, RIVKA Attending Unavailable ALEX MALCOLM Attending Unavailable SHIRLEY, IRMA Referring Unavailable BRINK, RIVKA Attending Unavailable SHIRLEY, IRMA Referring Unavailable BRINK, RIVKA Attending Unavailable SHIRLEY, IRMA Referring Unavailable BRINK, RIVKA Attending Unavailable SHIRLEY, IRMA Referring Unavailable BRINK, RIVKA Attending Unavailable SHIRLEY, IRMA Referring Unavailable BRINK, RIVKA Attending Unavailable SHIRLEY, IRMA Referring Unavailable ISELA JACOBS Attending Unavailab SKINNY Martin Attending Unavailable ISELA JACOBS Attending Unavailab lopez Allergies Allergy Classification Reported Allergen(s) Allergy Type [...] Start: 03-09-2023 ergocalciferol (Vitamin D2) 1.25 MG (13151 UT) capsule Indications: Primary osteoarthritis, unspecified site [...] 04-08-2023 Chronic Gout and other crystal arthropathies (8 sources) 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 [...] Test Name Value Interpretation Reference Range Facility CRP [Mass/Vol]on 10-28-2023 C REACTIVE PROTEIN 0.6 mg/dL Normal 0.000-0.744 [facility] Comment on above: Performed By: #### 3 084-1, 1988-5, 96671-4 #### [facility] ([id number]) [address] [place] [address], [address] [place] [id number] ESR Photometric method (Bld) [Velocity]on 10-28-2023 ESR, ERYTHROCYTE SEDIMENTATION RATE 24 mm/h High 0-20 [facility] Comment on above: Performed By: #### 3 084-1, 1987-06, 34724-3 #### [facility] ([id number]) [address], [address] [place] [address] URIC ACIDon 10-28-2023 Urate [Mass/Vol] 4.3 mg/dL Normal 2.6-7.2 [facility] Comment on above: Performed By: #### 3 084-1, 1987-06, 94240-2 #### [facility] ([id number]) [address], [address] [place] [address] MR CERVICAL SPINE WO CONTon 09-29-2023 MR [...] disc osteophyte complex, facet arthropathy results in xtuq-gs-[id number] right and moderate left neuroforaminal narrowing. No significant spinal canal narrowing. C6-C7: Mild broad-based disc osteophyte complex with right foraminal disc component, facet and uncovertebral arthropathy results in at least moderate right and aasu-wt-dxthegpa left neuroforaminal narrowing. No significant spinal canal narrowing. C7-T1: No significant spinal canal or neural foraminal narrowing. IMPRESSION: * Mild multilevel degenerative changes with scattered neuroforaminal narrowing as described. * Intradiscal edema at the C3-C4 disc space without additional inflammatory changes to suggest acute discitis osteomyelitis. Finalized by Kulwinder Chiang on 09/29/2023 12:05 PM Normal [facility] US LOWER EXTREMITY VENO US DUPLEX LEFTon 08-05-2023 [facility] US LOWER EXTREMITY VENOUS DUPLEX LEFT FINDINGS: [...] 07-30-2023 PROSTATIC SPEC ANT <0.01 Normal 0.00-4.00 [facility] Comment on above: Result Comment: The method used for this test is Sonja BuzzSumo DXI chemiluminescent immunoassay. Values obtained by different assay methods cannot be used interchangeably. Performed By: #### 2 857-1, 2986-8 #### [facility] ([id number]) [address], [address] [place] [address] TESTOSTERONEon 07-30-2023 Testosterone [Mass/Vol] ng/dL Low 1.68-7.46 [facility] Comment on above: Performed By: #### 2 857-1, 2986-8 #### [facility] ([id number]) [address], [address] [place] [address] CBC AND AUTO DIFFon 05-28-19 24 ABSOLUTE BASOPHIL 0.1 X10E9/L Normal 0.0-0.2 [facility] Comment on above: Performed By: #### Carmen BELL CMP, 1987-06 #### [facility] ([id number]) [address], [address] [place] [address] ABSOLUTE NEUTROPHIL 4.1 X10E9/L Normal 1.5-6.6 [facility] Comment on above: Performed By: #### Carmen BELL CMP, 1987-06 #### [facility] ([id number]) [address], [address] [place] [address] Basophils/100 WBC (Bld) 1.8 % Normal [facility] Comment on above: Performed By: #### Carmen BELL CMP, 1987-06 #### [facility] ([id number]) [address], [address] [place] [address] Eosinophils (Bld) [#/Vol] 0.4 10*3/uL Normal 0.0-0.4 [facility] Comment on above: Performed By: #### Carmen BELL CMP, 1987-06 #### [facility] ([id number]) [address], [address] [place] [address] Eosinophils/100 WBC (Bld) 6.5 % Normal [facility] Comment on above: Performed By: #### Carmen BELL CMP, 1987-06 #### [facility] ([id number]) [address], [address] [place] [address] Erythrocyte distribution width (RBC) [Ratio] 14.6 % Normal 11.5-15.0 [facility] Comment on above: Performed By: #### Carmen BELL CMP, 1987-06 #### [facility] ([id number]) [address], [address] [place] [address] Hematocrit (Bld) [Volume fraction] 34.1 % Low 39-49 [facility] Comment on above: Performed By: #### Carmen BELL CMP, 1987-06 #### [facility] ([id number]) [address], [address] [place] [address] Hemoglobin (Bld) [Mass/Vol] 11.5 g/dL Low 13.0-17.0 [facility] Comment on above: Performed By: #### Carmen BELL CMP, 1987-06 #### [facility] ([id number]) [address], [address] [place] [address] Lymphocytes (Bld) [#/Vol] 1.2 10*3/uL Normal 1.0-3.5 [facility] Comment on above: Performed By: #### Carmen BELL CMP, 1987-06 #### [facility] ([id number]) [address], [facility] [address] [place] [address] Lymphocytes/100 WBC (Bld) 18.7 % Normal [facility] Comment on above: Performed By: #### Carmen BELL CMP, 1987-06 #### [facility] ([id number]) [address], [address] [place] [address] MCH (RBC) [Entitic mass] 29.2 pg Normal 27-34 [facility] Comment on above: Performed By: #### Carmen BELL CMP, 1987-06 #### [facility] ([id number]) [address], [address] [place] [address] MCHC (RBC) [Mass/Vol] 33.7 g/dL Normal 32-36 [facility] Comment on above: Performed By: #### Carmen BELL CMP, 1987-06 #### [facility] ([id number]) [address], [address] [place] [address] MCV (RBC) [Entitic vol] 87 fL Normal 80-100 [facility] Comment on above: Performed By: #### Carmen BELL CMP, 1987-06 #### [facility] ([id number]) [address], [address] [place] [address] Monocytes (Bld) [#/Vol] 0.6 10*3/uL Normal 0-0.9 [facility] Comment on above: Performed By: #### Carmen BELL CMP, 1987-06 #### [facility] ([id number]) [address], [address] [place] [address] Monocytes/100 WBC (Bld) 9.1 % Normal [facility] Comment on above: Performed By: #### Carmen BELL CMP, 1987-06 #### [facility] ([id number]) [address], [address] [place] [address] Neutrophils/100 WBC (Bld) 63.9 % Normal [facility] Comment on above: Performed By: #### Carmen BELL CMP, 1987-06 #### [facility] ([id number]) [address], [address] [place] [address] Platelet mean volume (Bld) [Entitic vol] 8.5 fL Normal 7-12 [facility] Comment on above: Performed By: #### Carmen BELL CMP, 1987-06 #### [facility] ([id number]) [address], [address] [place] [address] Platelets (Bld) [#/Vol] 137 10*3/uL Low 150-450 [facility] Comment on above: Performed By: #### Carmen BELL CMP, 1987-06 #### [facility] ([id number]) [address], [address] [place] [address] RBC COUNT 3.94 X10E12/L Low 4.10-5.70 [facility] Comment on above: Performed By: #### Carmen BELL CMP, 1987-06 #### [facility] ([id number]) [address], [address] [place] [address] WBC (Bld) [#/Vol] 6.5 10*3/uL Normal 4.0-11.0 [facility] Comment on above: Performed By: #### Carmen BELL CMP, 1987-06 #### [facility] ([id number]) [address], [address] [place] [address] COMPREHENSIVE METABOLIC PANE Alvin 05-28-2023 Albumin [Mass/Vol] 3.9 g/dL Normal 3.2-5.3 [facility] Comment on above: Performed By: #### Carmen BELL CMP, 1987-06 #### [facility] ([id number]) [address], [address] [place] [address] ALP [Catalytic activity/Vol] 83 U/L Normal 39-130 [facility] Comment on above: Performed By: #### Carmen BELL CMP, 1987-06 #### [facility] ([id number]) [address], [address] [place] [address] ALT [Catalytic activity/Vol] 29 U/L Normal 0-40 [facility] Comment on above: Performed By: #### Carmen BELL CMP, 1987-06 #### [facility] ([id number]) [address], [address] [place] [address] Anion gap [Moles/Vol] 9 mmol/L Normal 5-15 [facility] Comment on above: Performed By: #### Carmen BELL CMP, 1987-06 #### [facility] ([id number]) [address], [address] [place] [address] AST [Catalytic activity/Vol] 31 U/L Normal 0-41 [facility] Comment on above: Performed By: #### Carmen BELL CMP, 1987-06 #### [facility] ([id number]) [address], [address] [place] [address] Bilirubin [Mass/Vol] 0.3 mg/dL Normal 0.3-1.2 [facility] Comment on above: Performed By: #### C [facility], 1987-06 #### [facility] ([id number]) [address], [address] [place] [address] Calcium [Mass/Vol] 9.3 mg/dL Normal 8.5-10.5 [facility] Comment on above: Performed By: #### C [facility], 1987-06 #### [facility] ([id number]) [address], [address] [place] [address] Chloride [Moles/Vol] 107 mmol/L Normal 98-109 [facility] Comment on above: Performed By: #### Carmen BELL [facility], 1987-06 #### [facility] ([id number]) [address], [facility] [address] [place] [address] CO2 [Moles/Vol] 25 mmol/L Normal 22-32 [facility] Comment on above: Performed By: #### Carmen BELL [facility], 1987-06 #### [facility] ([id number]) [address], [facility] [address] [place] [address] Creatinine [Mass/Vol] 0.98 mg/dL Normal 0.60-1.30 [facility] Comment on above: Result Comment: METH OD TRACEABLE TO IDMS STANDARD Performed By: #### Carmen BELL CMP, 1987-06 #### [facility] ([id number]) [address], [address] [place] [address] GFR/1.73 sq M.predicted among non-blacks MDRD (S/P/Bld) [Vol rate/Area] 83 mL/min/{1.73_m2} Normal >59 [facility] Comment on above: Result Comment: Reported eGFR is based on the CKD-EPI 2020 equation that does not use a race coefficient. Performed By: #### C LAURA BELL, 1987-06 #### [facility] ([id number]) [address], [address] [place] [address] Glucose [Mass/Vol] 83 mg/dL Normal 65-99 [facility] Comment on above: Performed By: #### Carmen BELL CMP, 1987-06 #### [facility] ([id number]) [address], [address] [place] [address] Potassium [Moles/Vol] 3.9 mmol/L Normal 3.5-5.0 [facility] Comment on above: Performed By: #### Carmen BELL CMP, 1987-06 #### [facility] ([id number]) [address], [address] [place] [address] Protein [Mass/Vol] 7.3 g/dL Normal 6.0-8.0 [facility] Comment on above: Performed By: #### Carmen BELL CMP, 1987-06 #### [facility] ([id number]) [address], [address] [place] [address] Sodium [Moles/Vol] 141 mmol/L Normal 134-146 [facility] Comment on above: Performed By: #### Carmen BELL CMP, 1987-06 #### [facility] ([id number]) [address], [address] [place] [address] Urea nitrogen [Mass/Vol] 12 mg/dL Normal 5-27 [facility] Comment on above: Performed By: #### Carmen BELL CMP, 1987-06 #### [facility] ([id number]) [address], [address] [place] [address] CRP [Mass/Vol]on 05-28-2023 C REACTIVE PROTEIN 1.0 mg/dL High 0.000-0.744 [facility] Comment on above: Performed By: #### Carmen BELL CMP, 1987-06 #### [facility] ([id number]) [address], [address] [place] [address] ESR Photometric method (Bld) [Velocity]on 05-28-2023 ESR, ERYTHROCYTE SEDIMENTATION RATE 35 mm/h High 0-20 [facility] Comment on above: Performed By: #### C BCA, CMP, 1987- #### [facility] ([id number]) [address], [address] [place] [address] Prostate specific Ag [Mass/V ol]on 05-25-2023 PROSTATIC SPEC ANT <0.01 Normal 0.00-4.00 [facility] Comment on above: Result Comment: The method used for this test is Sonja BuzzSumo DXI chemiluminescent immunoassay. Values obtained by different assay methods cannot be used interchangeably. Performed By: #### T EFTMA #### [facility] ([id number]) [address] [place] [address], [place] [address] #### 2857-1 #### [facility] ([id number]) [address] [facility] [facility], [address] [place] [address] TESTOSTERONE,F AND Ton 05-24 TESTOSTERONE,F,AD,ML <5.0 Low 47.0-244.0 [facility] Comment on above: Result Comment: NOTE INTERPRETIVE INFORMATION: Testosterone, Free by Dialysis This laboratory reference method for the direct measurement of free testosterone is not recommended when low testosterone concentrations, such as those found in children and cisgender females, are expected. For these individuals, the preferred test is Testosterone, Free (Adult Females, Children, or Individuals on Testosterone-Suppressing Hormone Therapy) ([employer] Radian6 test code 9730545). For individuals on testosterone hormone therapy, refer to cisgender male reference intervals. No reference intervals have been established for males younger than 18 years or for cisgender females. For a complete set of all established reference intervals, refer to [employer].Rebit/Tests/Pub/[id number]. This test was developed and its performance characteristics determined by [employer]. It has not been cleared or approved by the US Food and Drug Administration. This test was performed in a CLIA certified laboratory and is intended for clinical purposes. Performed By: [facility] [address] [place] [address] Watchstander: Frank Chatterjee MD, PhD CLIA Number: [id number] Performed By: #### T EFTMA #### [facility] ([id number]) [address] [place] [address] #### 2857-1 #### [facility] ([id number]) [address] [facility] [facility] [place] [address] TESTOSTERONE,TOT 8.0 ng/dL Low 300.0-720.0 [facility] Comment on above: Result Comment: NOTE This test was developed and its performance characteristics determined by [employer] [facility]. It has not been cleared or approved by the US Food and Drug Administration. This test was performed in a CLIA certified laboratory and is intended for clinical purposes. Performed By: #### T EFTMA #### [facility] ([id number]) [address] [place] [address] #### 2857-1 #### [facility] ([id number]) [address] [facility] [place] [address] XR CHEST 2 VIEWSon 4 XR CHEST [...] by RONAL SIMMONS on 07/04/2022 1012 Normal [facility] XR Shoulder Complete Right*o n 05-12-2023 XR Shoulder Complete Right* COMPARISON: NONE. FINDINGS: [...] by RONAL SIMMONS on 07/04/2022 1021 Normal [facility] Encounters Encounter Date Encounter Type Care Provider Facility Start: 11-06-2023 End: 11-06-2023 ambulatory RIVKA BRINK Not Available Start: 11-04-2023 End: 11-04-2023 ambulatory RIVKA BRINK Not Available Start: 10-30-2023 End: 10-30-2023 ambulatory RIVKA BRLUCAS Not Available Start: 10-28-2023 End: 10-28-2023 ambulatory [facility] Start: 10-28-2023 End: 10-28-2023 ambulatory RIVKA LORA Not Available Start: 10-23-2023 End: 10-23-2023 ambulatory RIVKA BRINK Not Available Start: 10-19-2023 End: 10-19-2023 ambulatory ALEX MALCOLM Not Available Start: 10-14-2023 End: 10-14-2023 ambulatory IRMA ELENA Not Available Start: 10-12-2023 End: 10-12-2023 ambulatory ALEX MALCOLM Not Available Start: 10-07-2023 End: 10-07-2023 ambulatory ALEX MALCOLM Not Available Start: 09-30-2023 End: 09-30-2023 ambulatory DELVIN GREEN Not Available Start: 09-29-2023 End: 09-29-2023 ambulatory IRMA ELENA Not Available Start: 09-28-2023 End: 09-28-2023 ambulatory IRMA ELENA [facility] Start: 09-23-2023 End: 09-23-2023 ambulatory DELVIN GREEN Not Available Start: 09-16-2023 End: 09-16-2023 ambulatory RIVKA LORA Not Available Start: 09-14-2023 End: 09-14-2023 ambulatory RIVKA BRLUCAS Not Available Start: 09-08-2023 End: 09-08-2023 ambulatory ALEX MALCOLM Not Available Start: 09-01-2023 End: 09-01-2023 ambulatory IRMA ELENA Not Available Start: 09-01-2023 End: 09-01-2023 ambulatory IRMA ELENA Not Available Start: 08-18-2023 End: 08-18-2023 ambulatory SKINNY PABLO Not Available Start: 08-14-2023 End: 08-14-2023 ambulatory IRMA ELENA Not Available Start: 08-12-2023 End: 08-12-2023 ambulatory ISELA A JACOBS Not Available Start: 08-05-2023 End: 08-05-2023 ambulatory ISELA A JACOBS Not Available Start: 08-05-2023 End: 08-05-2023 ambulatory ISELA A JACOBS Not Available Start: 07-30-2023 End: 07-30-2023 ambulatory [facility] Start: 07-22-2023 End: 07-22-2023 ambulatory ISELA A JACOBS Not Available Start: 07-15-2023 End: 07-16-2023 ambulatory [facility] Start: 06-03-2023 End: 06-04-2023 ambulatory [facility] Start: 05-28-2023 End: 05-29-2023 ambulatory SWETHA [facility] Start: 05-25-2023 End: 05-25-2023 ambulatory AARTI Anderson INDIRA [facility] Start: 05-22-2023 End: 05-22-2023 ambulatory ISELA A JACOBS Not Available Start: 05-13-2023 End: 05-13-2023 ambulatory SKINNY A CHELLY Not Available Start: 05-13-2023 End: 05-13-2023 ambulatory ISELA A JACOBS Not Available Start: 04-08-2023 Refill Isela saavedra NP Work Phone: [facility] Comment on above: Type 2 diabetes rosio itus without complication, without long- term current use of insulin ([facility]); Primary hypertension ([facility]) Type 2 diabetes rosio itus without complication, without long-term current use of insulin ([facility]) Start: 03-02-2023 End: 03-02-2023 ambulatory HEATH REYNOS[facility] Start: 02-11-2023 End: 02-11-2023 ambulatory ISELA JACOBS Not Available Start: 02-11-2023 End: 02-11-2023 ambulatory SKINNY PABLO Not Available Start: 02-05-2023 End: 02-05-2023 ambulatory ISELA JACOBS Not Available Procedures Date Procedure Procedure Detail Performing Clinician Start: 03-02-2023 Follow-up visit Follow-up HEATH REYNOSO Plan of Treatment Date Care Activity Detail Author Start: 12-17-2024 Glaucoma screening Diabetes: R etinopathy Screening [facility] Start: 05-13-2023 End: 05-13-2023 Patient encounter procedure 05/13/2023 1:00 PM EDT Procedure Visit [facility] [address] [place] [address] Skinny Pablo, DPM [address] [place] [address] [facility] Start: 05-12-2023 End: 05-12-2023 Patient encounter procedure 05/12/2023 9:00 AM EDT Office Visit [facility] [address] [place] [id number] Isela Jacobs, SCENIC ARTIST [address] [place] [address] [facility] Start: 05-07-2023 Hemoglobin A1c measurement Diabetes: Hemoglobin A1C [facility] Start: 04-11-2023 Urine screening for protein Diabetes: Urine Protein Screening [facility] Start: 09-20-2021 Medicare Annual Well ness (AWV) Medicare Annual Wellness (AWV) [facility] Start: 1955 Screening for malign ant neoplasm of colon [facility] Immunizations Immunization Date Immunization Notes Care Provider Fa cility 10-30-2022 Influenza, High-dose Seasonal, Quadrivalent, Preservative Free Teresa Chavarriaana SCENIC ARTIST Work Phone: [facility] 10-30-2022 Pneumococcal Conjuga te PCV 20 Teresa Chavarriaana SCENIC ARTIST Work Phone: [facility] 05-21-2022 SARS-COV-2 (COVID-19 ) vaccine, mRNA, spike protein, LNP, bivalent, PF Teresa Shayne SCENIC ARTIST Work Phone: [facility] 11-28-2021 zoster vaccine recombinant Teresa Chavarriaatiliosindi SCENIC ARTIST Work Phone: [facility] 08-10-2021 zoster vaccine recombinant Teresa Chavarriaatiliosindi SCENIC ARTIST Work Phone: [facility] Payers Date Payer Category Payer Medicare [facility] MEDIC[facility] ADV[facility] MEDIC[facility] ADVANTAGE [id number] 2022-Present [address] [place] [address] [id number] 2021 Medicaid MEDICAID [facility] [id number] 2021-Present [phone] [address] [place] [address] Medicaid [id number] 2021 Medicaid [id number] 2018 Medicare [id number] 1953 Unknown [id number] 2.16840.1.849205.3.579.2.1286 1953 Unknown [id number] 2.16840.1.247614.3.579.2.1285 1953 Unknown [id number] .840.1.202211.3.579.2.1286 1953 Unknown [id number] .0.1.695993.3.579.2.1285 1953 Unknown [id number] 2.16.840.1.473474.3.579.2.1286 1953 Unknown [id number] 2.16.840.1.653365.3.579.2.128 1953 Unknown [id number] 2.16.840.1.913332.3.579.2.1285 1953 Unknown [id number] 2.16.840.1.297390.3.579.2.128 1953 Unknown [id number] 2.16.840.1.481952.3.579.2.1285 1953 Unknown [id number] 2.16.840.1.426047.3.579.2.1258 1953 Unknown [id number] 2.16.840.1.365705.3.579.2.1258 1953 Unknown [id number] 2.16.840.1.183830.3.579.2.1258 1953 Unknown [id number] 2.16.840.1.584995.3.579.2.1258 1953 Unknown [id number] 2.16.840.1.848560.3.579.2.1258 1953 Unknown [id number] 2.16.840.1.580826.3.579.2.1258 1953 Unknown [id number] 2.16.840.1.306563.3.579.2.1258 1953 Unknown [id number] 2.16.840.1.340911.3.579.2.1258 1953 Unknown [id number] 2.16.840.1.814594.3.579.2.1258 1953 Unknown [id number] 2.16.840.1.941180.3.579.2.1258 1953 Unknown [id number] 2.16.840.1.297054.3.579.2.1259 1953 Unknown [id number] 2.16.840.1.912608.3.579.2.1258 1953 Unknown [id number] 2.16.840.1.033469.3.579.2.1258 1953 Unknown [id number] 2.16.840.1.720643.3.579.2.1258 1953 Unknown [id number] 2.16.840.1.464295.3.579.2.1258 1953 Unknown [id number] 2.16.840.1.603228.3.579.2.1258 1953 Unknown [id number] 2.16.840.1.108007.3.579.2.1258 1953 Unknown [id number] 2.16.840.1.184589.3.579.2.1258 1953 Unknown [id number] 2.16.840.1.689344.3.579.2.1258 1953 Unknown [id number] 2.16.840.1.380847.3.579.2.1258 1953 Unknown [id number] 2.16.840.1.418309.3.579.2.1258 1953 Unknown [id number] 2.16.840.1.412795.3.579.2.1258 1953 Unknown [id number] 2.16.840.1.723658.3.579.2.1258 1953 Unknown [id number] 2.16.840.1.345617.3.579.2.1258 1953 Unknown [id number] 2.16.840.1.372016.3.579.2.1258 1953 Unknown [id number] 2.16.840.1.145422.3.579.2.1258 1953 Unknown [id number] 2.16.840.1.562966.3.579.2.1259 1953 Unknown [id number] 2.16.840.1.569766.3.579.2.9 1953 Unknown [id number] 2.16.840.1.596014.3.579.2.1259 1953 Unknown [id number] 2.16.840.1.438191.3.579.2.1259 Social History Date Type Detail Facility Start: 08-04-2022 Tobacco smoking status MSIS Ex-smoke r [facility] Start: 02-23-1970 End: 02-24-1972 History of tobacco use Current smoker [facility] Start: 02-23-1970 End: 02-24-1972 History of tobacco use Cigarette Smoker [facility] Start: 08-04-2022 End: 02-05-2023 Cigarettes smoked current (pack per day) - Reported 1.5 [facility] Start: 08-04-2022 Tobacco use and exposure Smoke less tobacco non-user [facility] Start: 02-11-2023 Alcohol intake Ex-drinker (finding) [facility] Start: 11-04-2022 End: 02-05-2023 Alcohol Use Disorder Identification Test - Consumption [AUDIT-C] [facility] How often to you hav e a drink containing alcohol? Monthly or less [facility] How many standard dr inks containing alcohol do you have on a typical day? 1 or 2 [facility] How often do you hav e 6 or more drinks on 1 occasion? Never [facility] Start: 07-25-2022 Tobacco Comment >10 years sinc e last smoked [facility] Start: 01-02-2023 Alcohol Comment Caffeine intak e : 1-2 cups per day coffee [facility] Start: 1955 Sex Assigned At Not on file [facility] Medical Equipment Procedure Code Equipment Code Equipment Origin al Text Equipment Identifier Dates 1 each by Other route if needed. [id number] 1 (one) time eac h day at the same time. [id number] Start: 02-09-2019 Evaluation note Note Date & Type Note Facility Evaluation note Diagnosis Type 2 diabetes mellitus without complication, without long-term current use of insulin (CMS/HCC) Primary hypertension (CMS/HCC) Unspecified essential hypertension documented in this encounter [facility] Evaluation note Note Date & Type Note Facility Evaluation note Diagnosis Type 2 diabetes mellitus without complication, without long-term current use of insulin (CMS/HCC) documented in this encounter [facility] Summary Purpose Family History No Family [...] section and content) DATE CREATED AUTHOR 07/05/2022 [facility] dical Specialist DATE CREATED AUTHOR AUTHOR'S ORGANIZ ATION 03/07/2023 [facility] DATE CREATED AUTHOR AUTHOR'S ORGANIZ ATION 07/17/2023 [facility] DATE CREATED AUTHOR AUTHOR'S ORGANIZ ATION 10/30/2023 [facility] DATE CREATED AUTHOR AUTHOR'S ORGANIZ ATION 11/08/2023 [facility] dical Specialists EPIC Reason for Visit (unrecogniz ed section and content) Reason Comments Med Refill Care Teams (unrecognized sec tion and content) [employer] Relationship Specialty Start Date End Date Jackie Pimentel MD [address] [place] [address] PCP - Leonel CALIX 02/23/22 Jackie Pimentel MD [address] [place] [address] PCP - General Family Medicine 07/22/22 [employer] Relationship Specialty Start Date End Date Jacike Pimentel MD [address] [place] [address] PCP - Leonel CALIX 02/23/22 Jackie Pimentel MD [address] [place] [address] PCP - General Family Medicine 07/22/22 FOR [...] BE BASED ON THE PRIMARY CLINICAL RECORDS. [facility]. provides no warranty or guarantee of the accuracy or completeness of information in this document.
[2023-11-10 10:34] VITALS: BP 138/72; PULSE 88; TEMP 36.3; O2SAT 98
[2023-11-10 10:41] LABS: Glucometer 105 mg/dL (74-106)
[2023-11-10 11:07] VITALS: BP 194/72; PULSE 76; O2SAT 95
[2023-11-10 11:09] VITALS: BP 176/77; PULSE 70; O2SAT 94
[2023-11-10] MEDS: BUPIVACAINE HCL 0.25% PF 25 MG/10 ML VIAL 2 ML INJ (11:11)
[2023-11-10] MEDS: LIDOCAINE HCL 2% PF 100 MG/5 ML VIAL 2 ML INJ (11:12)
[2023-11-10] MEDS: IOHEXOL 240 MG/ML - 10 ML VIAL 24 MG INJ (11:12)
[2023-11-10] MEDS: TRIAMCINOLONE ACETONIDE 40 MG/ML VIAL 10 MG INJ (11:14)
--- NOTE | 2023-11-10 11:24 | W.PM.PROCNOT ---
Date of procedure: 11/10/23 Pre-op diagnosis: Right shoulder pain Post-op diagnosis: same as pre-op Procedure: Right Shoulder joint Injection Pre & postoperative diagnosis: pain secondary to bilateral shoulder osteoarthritis. Immediate complications none. Anesthesia: 2% lidocaine plain for skin wheal. After informed consent was obtained, patient brought to the OR placed in the supine position. Skin overlying the area was prepped and draped using betadine. 25-gauge 1/2 inch needle was used for skin wheal over the medial aspect of the joint identified under fluoroscopy. Omnipaque dye was used to confirm needle tip placement within the glenohumeral joint space 0.5 mL use of the injection. Subsequently Depomedrol 40mg and Marcaine 0.25% 4ml was injected into the space. No indication of intravascular or intraneuronal needle tip placement or injection was noted post procedure. The needle was removed, patient transferred to Recovery room in stable condition to discharged home after meeting criteria. Anesthesia: Local Surgeon: Davion Rosa Condition: stable
== END 2023-11-10 11:17 | disposition home or self-care (01) ==
LOC: SURGOUT 09:51
PROVIDERS: Visit Provider Anesthesiology Pain Medicine
DX: M25.511 Pain in right shoulder (principal); M19.012 Primary osteoarthritis, left shoulder; M19.011 Primary osteoarthritis, right shoulder
CPT/HCPCS: 20610; 36415; 77002; 82948; J0665; J3301; Q9966